=== PATIENT | female | born 1995 | race Hispanic/Latino ===

== ENCOUNTER 2018-07-28 05:03 | Day surgery (SDC) ==
[2018-07-28 05:56] VITALS: BP 126/82; TEMP 98.2; BMI 26.9
--- NOTE | 2018-07-28 06:45 | PDOC.FPROB ---
FMR OB H&P: HPI - History of Present Illness Chief Complaint: contractions Indentification: G1 History of Present Illness: 23yo G1 at 39.6w EGA by LMP/1TUS presents for increased pain and frequency of contractions since 11pm last night. Pt reports good mvmt, contractions every 5 min that are painful, some vaginal discharge for the last 2 months, denies vaginal bleeding or big gush of fluid. No concerns or complaints at this time. She does not want an epidural. Primary Care Physician: Luci JOHNSON FMR OB H&P: Current - Care : 1 Gestational age: 39.6 Due date: 07/29/2018 Dating Criteria: LMP c/w 1TUS - OB Labs Blood type: O RH: positive Antibody Screen: negative HIV: negative RPR: negative HepBsAg: negative Rubella: immune Quad screen: negative Gonorrhea: negative Chlamydia: negative 1 hour gtt: 88 GBS: unknown FMR OB H&P: History - Past Medical History PMH: none - OB History OB History: G1 - Surgical History Sx History: none - Social History Social History: denies tobacco/etoh/drugs - Family History Family History: non contributory FMR OB H&P: Medications - Current Home Medications: Medication Instructions Recorded Confirmed Type No Known 07/28/18 07/28/18 History Allergies/Adverse Reactions: Allergies Allergy/AdvReac Type Severity Reaction Status Date / Time No Known Allergies Allergy Unverified 07/28/18 05:57 FMR OB H&P: ROS - Review of Systems General: denies: fever/chills, fatigue ENT: denies: nasal congestion Cardiovascular: denies: chest pain, palpitation Respiratory: denies: congestion, shortness of breath Gastrointestinal: reports: cramping. denies: abdominal pain Genitourinary (Female): reports: vaginal discharge. denies: vaginal bleeding Musculoskeletal: denies: pain, stiffness Neurologic: denies: syncope, seizures Integumentary: denies: rash, lesions Endocrine: denies: polydipsia, polyuria Psychological: denies: depression, anxiety FMR OB H&P: Vital Signs - Maternal Vital signs: Vital Signs - First Documented Temp Pulse Resp BP 98.2 F 62 16 126/82 07/28/18 05:47 07/28/18 05:47 07/28/18 05:47 07/28/18 05:47 - Heart Tones Baseline: 140 Variability: moderate Acceleration: present Deceleration: absent Category: category 1 FMR OB H&P: Physical Exam - Physical Exam General: awake, alert and oriented HEENT: normocephalic and atraumatic, EOMI, grossly normal vision, grossly normal hearing Neck: supple, trachea midline Chest: non-tender to palpation Heart: RRR, normal S1/S2 General: CTAB, no respiratory distress Abdomen: gravid, non-tender Musculoskeletal: pulses present Neurological: sensation to pain,touch and proprioception grossly normal, no focal deficit Skin: no rash, good tugor Lymphatic: no purpura, no petechia Psychiatric: good judgement and insight, normal mood and affect - Pelvic Exam Deviation from normal: non-malodorous discharge SVE: /-3 FMR OB H&P: A/P - Problem List (1) Current Visit: Yes Status: Acute (2) Normal labor Current Visit: Yes Status: Acute Code(s): O80 - ENCOUNTER FOR FULL-TERM UNCOMPLICATED DELIVERY; Z37.9 - OUTCOME OF DELIVERY, UNSPECIFIED Discussion: 23yo G1 at 39.6w EGA by LMP/1TUS presents for increased contractions Labor in a term 23yo G1 A- Pt sav q5min by hx and shown on monitor, reports contractions to be painful. FHT category 1. VSS and wnl. P- Will obs in L&D and recheck @ 0830 to monitor for progression of cervical dilation -PO hydration -will get VP3 for eval of vaginal discharge -will consider amnisure -will request records for GBS status
[2018-07-28 07:42] LABS: Amnisure Test No Membranes Rupture (No Rupture)
[2018-07-28 07:43] LABS: Amnisure Internal Control QC ACCEPTABLE (ACCEPTABLE)
--- NOTE | 2018-07-28 08:46 | PDOC.LDPN ---
Labor & Delivery Progress Note - Subjective Subjective: comfortable - Objective Vital signs reviewed and normal: yes General: NAD, resting Uterine fundus: non tender SVE: at 10:30 Dilation: 1 Effacement: 0% Station: -3 FHT: category 2 ( tachycardia 160's), variability present [place] contractions every: q3 min - Assessment (1) Term Code(s): Z34.80 - ENCOUNTER FOR SUPRVSN OF NORMAL , UNSP TRIMESTER Current Visit: Yes Status: Acute Comment: 23 year old at 39.6 wks presents with contractions - No known complications in this - Latent labor - Recheck cervix 4 hours later: 1/thick/high - Contractions q3 min; patient does not appear to be in pain, although she rates it 8/10 (2) Vaginal discharge Code(s): N89.8 - OTHER SPECIFIED NONINFLAMMATORY DISORDERS OF VAGINA Current Visit: Yes Status: Acute Comment: - Reportedly leaking fluid since yesterday - Amnisure negative - Sterile speculum exam negative for pooling of fluid, negative valsalva - VP3 pending (3) tachycardia Code(s): TFD9013 - Current Visit: Yes Status: Acute Comment: - Encouraged PO fluid intake - Appears intermittent to 170's and back down to 150's with moderate variability -: Dispo: Patient stable. In latent labor. Explained that patient could be in latent labor for some time. tachycardia appears to have resolved. Return precautions provided. Plan to d/c patient home. Post-dates induction scheduled for 08/05.
== END 2018-07-28 11:45 | disposition home or self-care (01) ==
LOC: L&D/OP 05:03
PROVIDERS: ATTEND Emergency Medicine
DX: O47.1 False labor at or after 37 completed weeks of gestation (principal); O99.89 Other specified diseases and conditions complicating pregnancy, childbirth and the puerperium; N89.9 Noninflammatory disorder of vagina, unspecified; O76 Abnormality in fetal heart rate and rhythm complicating labor and delivery; Z3A.39 39 weeks gestation of pregnancy
CPT/HCPCS: 84112; 87480; 87510; 87660; 99285

== ENCOUNTER 2018-08-05 22:52 | Inpatient (IN) | payer MEDICAID, OTHER, SELFPAY ==
[2018-08-05] MEDS: Lactated Ringer's 1,000 ML IV SCH (23:36)
[2018-08-05 23:46] VITALS: BMI 26.9
[2018-08-05 23:49] LABS: Hemoglobin 11.6 g/dL (12.0-16.0); Mean Corpuscular HGB CONC 33.3 g/dL (32.0-36.0); Mean Corpuscular Hemoglobin 27.9 pg (27.0-31.0); Mean Corpuscular Volume 83.8 fL (78.0-98.0); Mean Platelet Volume 7.7 fL (7.4-10.4); Platelet Count 257 thou/uL (130-400); RBC Distribution Width 13.2 % (11.5-14.5); Red Blood Cell (RBC) Count 4.16 mill/uL (4.20-5.40); White Blood Cell (WBC) Count 8.7 thou/uL (4.8-10.8)
--- NOTE | 2018-08-06 00:02 | PDOC.FPROB ---
FMR OB H&P: HPI - History of Present Illness Chief Complaint: IOL History of Present Illness: Ms Joyner is a 23yo @41.1wks by LMP c/w 9.3wk US EDC 07/29/18 presenting for IOL for late term induction. Endorses movement. Denies contractions, LOF, vaginal bleeding, change in discharge. Denies HEBERT, Abdominal pain, changes in vision or edema. Primary Care Physician: Cortez FMR OB H&P: Current - Care : 1 Para: 0 Gestational age: 41.1 Due date: 07/29/18 Dating Criteria: LMP c/w 9.3wk US Total weight gain: 11lbs Course/Complications: Anemia of - OB Labs Blood type: O RH: positive Antibody Screen: negative HIV: negative RPR: negative HepBsAg: negative Rubella: immune Quad screen: negative Gonorrhea: negative Chlamydia: negative 1 hour gtt: 88 GBS: negative H&H: 10.2 - Anatomy Survey Anatomy survey: NML FMR OB H&P: Medications - Current Home Medications: Medication Instructions Recorded Confirmed Type Vit 108/Iron/Folic AC 1 tablet PO DAILY 08/05/18 08/05/18 History [ One Tablet] Allergies/Adverse Reactions: Allergies Allergy/AdvReac Type Severity Reaction Status Date / Time No Known Allergies Allergy Verified 08/05/18 23:20 FMR OB H&P: ROS - Review of Systems General: denies: fever/chills, weight/appetite/sleep changes, fatigue Eyes: denies: vision changes, scotomas, floaters ENT: denies: nasal congestion, rhinorrhea, sore throat Cardiovascular: denies: chest pain, palpitation, edema Respiratory: denies: cough, congestion, shortness of breath Gastrointestinal: denies: abdominal pain, nausea, vomiting Genitourinary (Female): denies: vaginal discharge, vaginal pain, vaginal bleeding, contractions Musculoskeletal: denies: pain, swelling Neurologic: denies: numbness, headache Integumentary: denies: rash, lesions FMR OB H&P: Vital Signs - Maternal Vital signs: Vital Signs - First Documented Temp Pulse Resp BP 99.0 F 72 18 131/83 08/05/18 23:14 08/05/18 23:14 08/05/18 23:14 08/05/18 23:14 FMR OB H&P: Physical Exam - Physical Exam General: NAD, awake, alert and oriented HEENT: normocephalic and atraumatic, conjunctiva clear, no scleral icterus, grossly normal hearing, oropharynx clear Neck: supple, trachea midline Heart: RRR, no murmurs/rubs/gallops General: CTAB, no respiratory distress, good air movement, no wheezing Abdomen: soft, gravid, non-tender, bowel sound present Musculoskeletal: FROM in all four extremities, no misalignment/asymmetry, no atrophy Neurological: no focal deficit Skin: no rash, capillary refill <2 seconds, no jaundice Psychiatric: intact recent and remote memory, good judgement and insight, normal mood and affect - Pelvic Exam Membranes: Intact Presentation: cephalic by US Estimated Weight: 7 lbs FMR OB H&P: Results - Labs Lab results: Laboratory Results - last 24 hr 08/05/18 23:31 WBC 8.7 RBC 4.16 L Hgb 11.6 L Hct 34.8 L MCV 83.8 MCH 27.9 MCHC 33.3 RDW 13.2 Plt Count 257 MPV 7.7 FMR OB H&P: A/P - Problem List (1) LATE TERM Current Visit: Yes Status: Acute Disposition: Ms Joyner is a 23yo @41.1wks by 9.3wk US [facility] 07/29/18 presenting for IOL for late term induction. sIUP - Possible tachycardia, will continue to monitor after 500ml bolus - SVE on 08/01/18 in clinic 3 - Plan IOL with cytotec - Does not desire epidural Anemia of - Hgb 11.6 - Plans to breast/bottle feed - Contraception: Undecided Discussion: Date/Time: 08/06/18 0000 This H&P was discussed with Dr. Aquino and Dr. Chao who agree with the above documentation and plan. Addendum - Attending - Attending Attestation Date/Time: 08/07/18 0708 I personally evaluated the patient and discussed the management with Dr. Mcnally I agree with the History, Examination, Assessment and Plan documented above with any addition or exceptions noted below. 23yo @41.1wks by LMP c/w 9.3wk presenting for postdates IOL. Uncomplicated CVX: 1cm/T/H Cephalic presentation FHT cat II for intermittent tachycardia. GBS negative Balloon placed for cervical ripening. Once FHT is reassuring, can give cytotec
[2018-08-06] MEDS ORDERED: NS / Oxytocin 40 units/1000ml 1,000 ML IV PRN (00:50)
[2018-08-06] MEDS ORDERED: Ondansetron PF 4 MG/2 ML Vial IVP PRN (00:50)
[2018-08-06] MEDS ORDERED: Promethazine HCl 25 MG/ML VIAL IM PRN (00:50)
[2018-08-06] MEDS ORDERED: Lidocaine 1% (PF) 30 ML VIAL SC PRN (00:50)
[2018-08-06] MEDS ORDERED: Misoprostol 100 MCG TAB ONE (00:53)
--- NOTE | 2018-08-06 02:19 | PDOC.LDPN ---
Labor & Delivery Progress Note - Subjective Subjective: comfortable - Objective Vital signs reviewed and normal: yes General: NAD Uterine fundus: non tender Dilation: 1 Effacement: 50% Station: -3 FHT: category 2 (Intermittent tachycardia ) - Assessment (1) LATE TERM Current Visit: Yes Status: Acute Plan: continue plan of care, labor augmentation -: Ms Joyner is a 23yo @41.1wks by 9.3wk US EDC 07/29/18 presenting for IOL for late term induction. sIUP - Intermittent tachycardia will hold off on induction with cytotec, cooks balloon placed with 60mls - SVE /-3 - Does not desire epidural Anemia of - Hgb 11.6 - Plans to breast/bottle feed - Contraception: Undecided
[2018-08-06] MEDS: Lactated Ringer's 1,000 ML IV SCH ×3 (03:30→20:37)
[2018-08-06 03:36] LABS: Syphilis Antibody Nonreactive (Nonreactive); Syphilis Antibody Index 0.05 S/CO (<1.00 Non-Reactive)
[2018-08-06] MEDS: Misoprostol 100 MCG TAB VAG SCH ×3 (03:37→19:23)
--- NOTE | 2018-08-06 04:53 | PDOC.LDPN ---
Labor & Delivery Progress Note - Subjective Subjective: comfortable - Objective Vital signs reviewed and normal: yes General: NAD FHT: category 2 - Assessment (1) LATE TERM Current Visit: Yes Status: Acute
[2018-08-06] MEDS ORDERED: Butorphanol Tartrate 1 MG/ML VIAL SLOW IVP PRN (08:36)
[2018-08-06] MEDS ORDERED: Butorphanol Tartrate 1 MG/ML VIAL ONE (08:56)
[2018-08-06] MEDS: Misoprostol 100 MCG TAB PO SCH ×2 (09:17→19:24)
--- NOTE | 2018-08-06 13:07 | PDOC.LDPN ---
Labor & Delivery Progress Note - Subjective Subjective: comfortable - Objective Vital signs reviewed and normal: yes General: NAD, resting, breathing through contractions Uterine fundus: non tender Dilation: balloon in place; 2 Station: -2 FHT: category 1, variability present [place] contractions every: 3-4 min Resuscitative measures: maternal IV fluids Plan: continue plan of care -: Ms Joyner is a 23yo @41.1wks by 9.3wk US EDC 07/29/18 presenting for IOL for late term induction. sIUP - Cooks balloon in place with 60mls; balloon placed at 0210; Will remove at 12 hrs - s/p oral cytotech @ 0830 - Does not desire epidural; given information and had discussion - Continue current management, can consider pitocin once balloon removed - Pt given stadal for pain Anemia of - Hgb 11.6, asymptomatic, will continue w/ iron supplement - Plans to breast/bottle feed - Contraception: Undecided
--- NOTE | 2018-08-06 14:22 | PDOC.LDPN ---
Labor & Delivery Progress Note - Subjective Subjective: comfortable - Objective Vital signs reviewed and normal: yes General: NAD, resting, breathing through contractions Dilation: 3 Effacement: 50% Station: -2 FHT: category 1, variability present [place] contractions every: 5min Resuscitative measures: maternal IV fluids Plan: continue plan of care, pitocin for augmentation -: Ms Joyner is a 23yo @41.1wks by 9.3wk US EDC 07/29/18 presenting for IOL for late term induction. sIUP - Cooks balloon removed - required deflation to remove - s/p oral cytotech @ 0830 - Does not desire epidural; given information and had discussion - Pt given stadal for pain - Will start pitocin and titrate as necessary Anemia of - Hgb 11.6, asymptomatic, will continue w/ iron supplement - Plans to breast/bottle feed - Contraception: Undecided
[2018-08-06] MEDS: NS w/ Oxytocin 10 units 500 ML IV SCH (14:54)
[2018-08-06 15:11] LABS: HBSAg Index 0.56 S/CO (0-0.99); Hep B Surf Ag Non-Reactive S/CO (NonReactive)
--- NOTE | 2018-08-06 17:10 | PDOC.LDPN ---
Labor & Delivery Progress Note - Subjective Subjective: comfortable - Objective Vital signs reviewed and normal: yes General: NAD, resting, breathing through contractions Uterine fundus: non tender Dilation: 3 Effacement: 50% Station: -2 FHT: category 1 (FHR 140, accel present, no decels, intermittent minimal variability w/ recovery), variability present [place] contractions every: 3-5min Resuscitative measures: maternal IV fluids Plan: continue plan of care, pitocin for augmentation -: Ms Joyner is a 23yo @41.1wks by 9.3wk US EDC 07/29/18 presenting for IOL for late term induction. sIUP - Cooks balloon removed - required deflation to remove - s/p oral cytotech @ 0830 - Does not desire epidural; given information and had discussion - Pt given stadal for pain - On 6 of pit currently, will titrate as tolerated - Check at 1700: 3/50/-2, will recheck in 2 hours Anemia of - Hgb 11.6, asymptomatic, will continue w/ iron supplement - Plans to breast/bottle feed - Contraception: Undecided
--- NOTE | 2018-08-06 19:31 | PDOC.LDPN ---
Labor & Delivery Progress Note - Subjective Subjective: comfortable - Objective Vital signs reviewed and normal: yes General: NAD, breathing through contractions Uterine fundus: non tender Effacement: 50% Station: -3 FHT: category 1, variability present [place] contractions every: 2-5minutes - Assessment (1) LATE TERM Current Visit: Yes Status: Acute (2) tachycardia Code(s): [id number] - Current Visit: No Status: Acute Comment: - Encouraged PO fluid intake - Appears intermittent to 170's and back down to 150's with moderate variability (3) Normal labor Code(s): O80 - ENCOUNTER FOR FULL-TERM UNCOMPLICATED DELIVERY; Z37.9 - OUTCOME OF DELIVERY, UNSPECIFIED Current Visit: No Status: Acute (4) Current Visit: No Status: Acute (5) Term Code(s): Z34.80 - ENCOUNTER FOR SUPRVSN OF NORMAL , UNSP TRIMESTER Current Visit: No Status: Acute Comment: 23 year old at 39.6 wks presents with contractions - No known complications in this - Latent labor - Recheck cervix 4 hours later: 1/thick/high - Contractions q3 min; patient does not appear to be in pain, although she rates it 8/10 Plan: continue plan of care, pitocin for augmentation -: Ms Joyner is a 23yo @41.1wks by 9.3wk US EDC 07/29/18 presenting for IOL for late term induction. sIUP - Cooks balloon removed - required deflation to remove - s/p oral cytotech @ 0830 - Does not desire epidural; given information and had discussion - Pt given stadol for pain - On 10 of pit currently, will titrate as tolerated - Check at 1700: 3/50/-2 - @ 1900: 4/50/-3, will recheck in 2 hrs Anemia of - Hgb 11.6, asymptomatic, will continue w/ iron supplement - Plans to breast/bottle feed - Contraception: Undecided
--- NOTE | 2018-08-06 23:52 | PDOC.LDPN ---
Labor & Delivery Progress Note - Subjective Subjective: comfortable, other (rating contractions 2/10) - Objective Vital signs reviewed and normal: yes Abnormal vital signs: 2 systolic BP >140, appear to be pain related, during contractions General: resting, breathing through contractions Dilation: 5 Effacement: 75% Station: -3 FHT: category 1 [place] contractions every: 2-3 minutes AROM: clear fluid IUPC placed: yes - Assessment (1) LATE TERM Current Visit: Yes Status: Acute (2) tachycardia Code(s): [id number] - Current Visit: No Status: Acute Comment: - Encouraged PO fluid intake - Appears intermittent to 170's and back down to 150's with moderate variability (3) Normal labor Code(s): O80 - ENCOUNTER FOR FULL-TERM UNCOMPLICATED DELIVERY; Z37.9 - OUTCOME OF DELIVERY, UNSPECIFIED Current Visit: No Status: Acute (4) Current Visit: No Status: Acute (5) Term Code(s): Z34.80 - ENCOUNTER FOR SUPRVSN OF NORMAL , UNSP TRIMESTER Current Visit: No Status: Acute Comment: 23 year old at 39.6 wks presents with contractions - No known complications in this - Latent labor - Recheck cervix 4 hours later: 1/thick/high - Contractions q3 min; patient does not appear to be in pain, although she rates it 8/10 Plan: continue plan of care, pitocin for augmentation -: Ms Joyner is a 23yo @41.1wks by 9.3wk US EDC 07/29/18 presenting for IOL for late term induction. sIUP - Cooks balloon removed - required deflation to remove - s/p oral cytotech @ 0830 - Does not desire epidural; given information and had discussion - stadol for pain - On 10 of pit currently, will titrate as tolerated - Check at 1700: 3/50/-2 - @ 1900: 4/50/-3, will recheck in 2 hrs - @ 2100: 5/50/-2 - @ 2330: 5.5/75/-3, AROM, IUPC placed - FHTs category 1: baseline 150, mod variability, accels present, no decels Anemia of - Hgb 11.6, asymptomatic, will continue w/ iron supplement - Plans to breast/bottle feed - Contraception: Undecided
[2018-08-07] MEDS ORDERED: Lidocaine 1.5% w/Epi 1:200K 30 ML VIAL (Epid Use) ONE (01:21)
[2018-08-07] MEDS ORDERED: Fentanyl 4 mcg/Bup 0.1% Cadd 100 ML ONE (01:22)
[2018-08-07] MEDS ORDERED: Ondansetron PF 4 MG/2 ML Vial IVP PRN (02:02)
[2018-08-07] MEDS ORDERED: Hydrocerin (Eucerin) Cream 120 gm Jar TOP PRN (02:02)
[2018-08-07] MEDS ORDERED: Lactated Ringer's 500 ML IV PRN (02:02)
[2018-08-07] MEDS ORDERED: ePHEDrine/0.9% NaCl/PF SYRINGE 50 mg/10 ml SLOW IVP PRN (02:02)
[2018-08-07] MEDS ORDERED: Acetaminophen 325 MG TAB PO PRN (02:02)
[2018-08-07] MEDS ORDERED: Naloxone HCl 0.4 mg/ml Vial IVP PRN ×2 (02:02)
[2018-08-07] MEDS ORDERED: Promethazine HCl 25 MG/ML VIAL IM PRN (02:02)
[2018-08-07] MEDS: Lactated Ringer's 1,000 ML IV SCH ×2 (02:02→10:05)
[2018-08-07] MEDS ORDERED: diphenhydrAMINE 50 MG/ML VIAL IVP PRN (02:02)
[2018-08-07] MEDS ORDERED: Fentanyl 4 mcg/Bupivacaine 0.1% Cassette 100 ML EPIDURAL SCH (02:15)
[2018-08-07] MEDS ORDERED: Communication Order-Pharmacy FS SCH (02:15)
--- NOTE | 2018-08-07 03:52 | PDOC.LDPN ---
Labor & Delivery Progress Note - Subjective Subjective: comfortable, other (received epidural) - Objective Vital signs reviewed and normal: yes General: NAD, resting Dilation: 5.5 Station: -2 FHT: category 1 [place] contractions every: 2-3 min AROM: clear fluid IUPC placed: yes - Assessment (1) LATE TERM Current Visit: Yes Status: Acute (2) tachycardia Code(s): [id number] - Current Visit: No Status: Acute Comment: - Encouraged PO fluid intake - Appears intermittent to 170's and back down to 150's with moderate variability (3) Normal labor Code(s): O80 - ENCOUNTER FOR FULL-TERM UNCOMPLICATED DELIVERY; Z37.9 - OUTCOME OF DELIVERY, UNSPECIFIED Current Visit: No Status: Acute (4) Current Visit: No Status: Acute (5) Term Code(s): Z34.80 - ENCOUNTER FOR SUPRVSN OF NORMAL , UNSP TRIMESTER Current Visit: No Status: Acute Comment: 23 year old at 39.6 wks presents with contractions - No known complications in this - Latent labor - Recheck cervix 4 hours later: 1/thick/high - Contractions q3 min; patient does not appear to be in pain, although she rates it 8/10 Plan: continue plan of care, labor augmentation, pitocin for augmentation -: Ms Joyner is a 23yo @41.1wks by 9.3wk US EDC 07/29/18 presenting for IOL for late term induction. sIUP - Cooks balloon removed - required deflation to remove - s/p oral cytotech @ 0830 - stadol for pain - On pit, will titrate as tolerated - @ 1700: 3/50/-2 - @ 1900: 4/50/-3, will recheck in 2 hrs - @ 2100: 5/50/-2 - @ 2330: 5.5/75/-3, AROM, IUPC placed - @ 0345: 5.5/80/-2, MVUs not adequate at 160; pitocin increased - epidural in place - FHTs category 1: baseline 150, mod variability, accels present, no decels, cxn every 2-3 minutes Anemia of - Hgb 11.6, asymptomatic, will continue w/ iron supplement - Plans to breast/bottle feed - Contraception: Undecided Addendum - Attending - Attending Attestation Date/Time: 08/07/18 0728 I personally evaluated the patient and discussed the management with Dr. Al I agree with the History, Examination, Assessment and Plan documented above with any addition or exceptions noted below. Pt checked at 7am. Cervix 5.5/90/- On pit of 10 without adequate MVUs. RNs having difficulty getting MVUs adequate as pt has tachysystole with higher doses. Cat II FHT for tachcardia and occasional variable decel. Using spanish interpreter discussed possibility of delivery as she hasn't dilated in 9hrs at this point. Will recheck in 2 hrs. If making progress will continue attempt at vaginal delivery but if not will proceed with .
--- NOTE | 2018-08-07 09:24 | PDOC.EVN ---
Event Note - Event Note Event Note: Pt evaluated. Cervix now 6/-1, starting to get mildly edematous. IUPC changed and MVUs now 170-180. FHTs: 140s with periods of tachycardia to 170s (likely prolonged accel), periods of minimal variability/moderate variability/accels present/early/ variable decels. Will continue to titrate pitocin to adequate MVUs. Recheck in 4 hrs. Cat II tracing but overall reassuring
[2018-08-07] MEDS: NS w/ Oxytocin 10 units 500 ML IV SCH (09:37)
[2018-08-07] MEDS: NS / Oxytocin 40 units/1000ml 1,000 ML IV SCH ×2 (15:00→20:49)
[2018-08-07] MEDS ORDERED: Bisacodyl 10 MG SUPP PR PRN (16:10)
[2018-08-07] MEDS ORDERED: Milk Of Magnesia 30 ML UDCUP PO PRN (16:10)
[2018-08-07] MEDS ORDERED: Albuterol Sulfate 2.5 mg/3 ml Neb ONE (19:00)
[2018-08-07] MEDS: Ferrous Sulfate 325 MG TAB PO SCH (19:00)
[2018-08-07] MEDS: Ibuprofen 800 MG TAB PO SCH (20:49)
[2018-08-07] MEDS: Docusate Calcium (SURFAK) 240 MG CAP PO SCH (20:49)
[2018-08-08] MEDS: Ibuprofen 800 MG TAB PO SCH ×3 (06:09→22:07)
[2018-08-08 06:53] LABS: Hemoglobin 9.5 g/dL (12.0-16.0); Mean Corpuscular HGB CONC 33.9 g/dL (32.0-36.0); Mean Corpuscular Hemoglobin 29.4 pg (27.0-31.0); Mean Corpuscular Volume 86.9 fL (78.0-98.0); Mean Platelet Volume 8.1 fL (7.4-10.4); Platelet Count 173 thou/uL (130-400); RBC Distribution Width 13.5 % (11.5-14.5); Red Blood Cell (RBC) Count 3.21 mill/uL (4.20-5.40); White Blood Cell (WBC) Count 13.6 thou/uL (4.8-10.8)
[2018-08-08] MEDS ORDERED: Adacel (T-DAP) 0.5 ML SYRINGE IM ONE (09:00)
--- NOTE | 2018-08-08 09:10 | PDOC.PP ---
Post Progress Note Post Day #: 1 Subjective: This morning patient states she is feeling well. She states she is eating well. States she is still swollen around the vaginal but is otherwise feeling well. less bleeding than a period. PO intake tolerated: yes Flatus: no Ambulation: yes Vital Signs (12 hours) Temp Pulse Resp BP Pulse Ox 08/08/18 08:08 97.9 F 68 20 102/67 98 08/08/18 00:00 98.1 F 69 18 101/56 L Weight Weight 54.431 kg - Physical Examination General: NAD Cardiovascular: no m/r/g, RRR Respiratory: clear to auscultation bilaterally, non-labored breathing Abdominal: + bowel sounds, appropriately TTP Fundus firm & at: 2cm below umbilicus Extremities: negative homans (B) Neurological: no gross focal deficits Psychiatric: A&Ox3, normal affect Result Diagrams: 08/08/18 05:33 Additional Labs: Post Labs Blood Type O POSITIVE 08/05/18 23:31 Hep Bs Antigen Non-Reactive S/CO (NonReactive) 08/05/18 23:31 Rubella IgG Antibody 2.35 index (Immune >0.99) 08/05/18 23:31 (1) Status: Acute - Assessment/Plan #PP day 1 - hgb 11.5-> 9.6 - asymptomatic - eating well - encouraged ambulation today - spoke to nurse asked patient walk up and down the [place] today # partial third degree tear - docuaste BID - must have BM before dc Code: full Diet: regular Fluids: tko Dispo: 1 day Addendum - Attending - Attending Attestation Date/Time: 08/08/18930 I personally evaluated the patient and discussed the management with Dr. Al I agree with the History, Examination, Assessment and Plan documented above with any addition or exceptions noted below. 23yo [id number] PPD #1 s/p complicated by partial 3rd degree perineal laceration. Labia are significantly edematous. Will keep blevins in place at this time. Doing well otherwise Anticipate d/c to home on PPD # 2 or 3
[2018-08-08] MEDS: Docusate Calcium (SURFAK) 240 MG CAP PO SCH ×2 (09:17→22:07)
[2018-08-08] MEDS: Ferrous Sulfate 325 MG TAB PO SCH ×2 (09:17→18:11)
--- NOTE | 2018-08-08 10:42 | OP ---
DATE OF PROCEDURE: 08/07/2018 DELIVERING PHYSICIAN: Anup Al MD ATTENDING PHYSICIAN: Bel Vasquez MD PROCEDURE: Spontaneous vaginal delivery. ANESTHESIA: Epidural. ESTIMATED BLOOD LOSS: 200 mL. PREOPERATIVE DIAGNOSES: 1. Term intrauterine in labor. 2. Induction for postdates. 3. Anemia of . POSTOPERATIVE DIAGNOSES: 1. Term intrauterine in labor. 2. Induction for postdates. 3. Anemia of . INDICATIONS: A 23-year-old G1, P0 female, presented for induction secondary to postdates. DELIVERY NOTE: This is a 23-year-old, G1, P1-0-0-1 at 40 and 1 weeks, delivered a viable female at 1458 hours on 08/07/2018. Following an uneventful antepartum course, a vigorous female was delivered over an intact perineum in the right occipital anterior position. Anterior shoulder and then the remainder of the body delivered. No nuchal cord. The head was held down. Mouth and nares were bulb suctioned. Cord was clamped and cut, and blood collected. The patient was taken to the warmer quickly. Cord segment was taken for sample. Placenta was delivered intact with a 3-vessel cord. Fundal massage was performed and the fundus was firm. The cervix and vagina were inspected and found to have a partial third-degree tear. The capsule was not affected. The external anal sphincter was reinforced with one [id number] knots of 3-0 Vicryl. After this, good approximation was noted of the external anal sphincter and we were left with essentially a second-degree tear. This was repaired in the usual fashion using a 3-0 Vicryl suture in a running locking fashion. After this, good approximation and hemostasis was noted. The was sent to the nursery in good condition for routine care. Apgars were 5 and 7 at one and five minutes respectively. The infant initially required blow-by, but then recovered well and transitioned well. The patient tolerated the delivery well and went to after routine recovery care. AugustoBL: 245. Job ID: [id number]
[2018-08-08] MEDS: NS w/ Oxytocin 10 units 500 ML IV SCH (15:24)
--- NOTE | 2018-08-08 15:49 | PDOC.EVN ---
Event Note - Event Note Event Note: 08/07/2018 I was present, assisted, and supervised the of a viable female over an intact perineum to a 23 yo @ 41+ weeks. Apgars 5/7. Placenta delivered spontaneously and intact. 3 V cord. Partial 3rd laceration repaired in usual fashion with 3-0 vicryl. QBL= 245mL. Longo replaced due to labial swelling. Infant and mother in stable condition.
[2018-08-09] MEDS: Ibuprofen 800 MG TAB PO SCH ×2 (06:20→14:54)
--- NOTE | 2018-08-09 07:50 | PDOC.PP ---
Post Progress Note Post Day #: 2 Subjective: This morning patient states she is feeling well. She is eating well, ambulating without difficulty. She has had a BM without bleeding or pain. She staets she has had less bleeding than a regular period. PO intake tolerated: yes Flatus: yes Ambulation: yes Weight Weight 54.431 kg - Physical Examination General: NAD Cardiovascular: no m/r/g Respiratory: clear to auscultation bilaterally, non-labored breathing Abdominal: + bowel sounds, lochia, appropriately TTP Extremities: negative homans (B) Neurological: no gross focal deficits Psychiatric: A&Ox3, normal affect Result Diagrams: 08/08/18 05:33 Additional Labs: Post Labs Blood Type O POSITIVE 08/05/18 23:31 Hep Bs Antigen Non-Reactive S/CO (NonReactive) 08/05/18 23:31 Rubella IgG Antibody 2.35 index (Immune >0.99) 08/05/18 23:31 (1) Status: Acute - Assessment/Plan #PP day 2 - hgb 11.5-> 9.6 - asymptomatic - eating well - ambulating well # partial third degree tear - docusate BID for 1 week - had BM without difficulty - skilled nursing facility counselor on risk of tear on repeat vaginal delivery Code: full Diet: regular Fluids: tko Dispo: plan for d/c today Addendum - Attending - Attending Attestation Date/Time: 08/09/18 1406 I personally evaluated the patient and discussed the management with Dr. Al I agree with the History, Examination, Assessment and Plan documented above with any addition or exceptions noted below. PPD # 2 s/p meeting appropriate milestones including bowel movement D/C to home today
[2018-08-09 08:08] VITALS: BP 115/61; TEMP 98.2
[2018-08-09] MEDS: Ferrous Sulfate 325 MG TAB PO SCH (09:10)
[2018-08-09] MEDS: Docusate Calcium (SURFAK) 240 MG CAP PO SCH (09:10)
[2018-08-09] MEDS: NS w/ Oxytocin 10 units 500 ML IV SCH (14:54)
== END 2018-08-09 18:24 | disposition home or self-care (01) | DRG 768 ==
LOC: L&D 22:52 → 3SE 08-07 18:27
PROVIDERS: ADMIT Emergency Medicine; ATTEND Emergency Medicine
PROC: 10E0XZZ Delivery of Products of Conception, External Approach (ICD-10-PCS; principal; 2018-08-05)
PROC: 0DQR0ZZ Repair Anal Sphincter, Open Approach (ICD-10-PCS; 2018-08-05)
PROC: 3E033VJ Introduction of Other Hormone into Peripheral Vein, Percutaneous Approach (ICD-10-PCS; 2018-08-05)
DX: O48.0 Post-term pregnancy (principal); Z37.0 Single live birth; O70.20 Third degree perineal laceration during delivery, unspecified; Z3A.41 41 weeks gestation of pregnancy; O76 Abnormality in fetal heart rate and rhythm complicating labor and delivery; O99.02 Anemia complicating childbirth; D64.9 Anemia, unspecified
CPT/HCPCS: 36415; 51702; 76815; 85027; 86762; 86780; 86850; 86900; 86901; 87340; C1726; J0595; J7611

== ENCOUNTER 2018-12-06 13:48 | Observation (INO) | payer MEDICAID, SELFPAY ==
[~2018-12-06 13:48] MED LIST: Dexamethasone 20 MG/5 ML VIAL ONE; Glycopyrrolate 0.2 MG/ML 5 ML SYRINGE ONE; Ketorolac Tromethamine 30 MG/ML VIAL ONE; Lidocaine 1% PF 5 ML VIAL ONE; Ondansetron PF 4 MG/2 ML Vial ONE; PROPOFOL 200 MG/20 ML VIAL ONE; Rocuronium Bromide 10 MG/ML (10ML VIAL) ONE; diphenhydrAMINE 50 MG/ML VIAL ONE
[2018-12-06] MEDS ORDERED: Ondansetron PF 4 MG/2 ML Vial ONE (14:12)
[2018-12-06] MEDS ORDERED: Morphine 4 MG/ML VIAL ONE (14:12)
[2018-12-06 14:22] LABS: #Eosinphils 0.1 thou/uL (0.0-0.7); #Lymphocytes 2.5 thou/uL (1.20-3.40); #Monocytes 0.5 thou/uL (0.11-0.59); #Neutrophils 5.6 thou/uL (1.40-6.50); %Basophils 0.3 % (0.0-1.0); %Eosinophils 1.6 % (0.0-10.0); %Monocytes 5.1 % (0.0-10.0); %Neutrophils 63.9 % (42.0-75.0); Hemoglobin 11.3 g/dL (12.0-16.0); Mean Corpuscular HGB CONC 33.6 g/dL (32.0-36.0); Mean Corpuscular Hemoglobin 27.7 pg (27.0-31.0); Mean Corpuscular Volume 82.4 fL (78.0-98.0); Mean Platelet Volume 7.2 fL (7.4-10.4); Platelet Count 232 thou/uL (130-400); RBC Distribution Width 12.9 % (11.5-14.5); Red Blood Cell (RBC) Count 4.07 mill/uL (4.20-5.40); White Blood Cell (WBC) Count 8.7 thou/uL (4.8-10.8)
[2018-12-06 14:27] LABS: Bilirubin Negative (Negative); Blood, Urine Trace (Negative); Clarity TURBID (Clear); Glucose, Urine (Dipstick) Negative (Negative); Leukocyte Small (Negative); Nitrite Negative (Negative); Protein, Urine (Dipstick) 30 mg/dL (Neg-Trace); Specific Gravity, Urine 1.024 (1.002-1.036); pH, Urine 5.5 (5.0-9.0)
[2018-12-06 14:32] LABS: BHCG - Serum Negative (NEGATIVE); Pregs Control Background? CLEAR/WHITE (CLR/WHITE); Pregs Control Bar Appear? YES (CONTROL BAR)
[2018-12-06 14:41] LABS: Bacteria/HPF 1+ HPF (None Seen); Hyaline Casts/LPF NONE SEEN LPF (0-3 Hyaline); RBC/HPF 0-3 HPF (0-3)
[2018-12-06 14:44] LABS: ALT (SGPT) 29 U/L (8-55); AST (SGOT) 56 U/L (5-34); Albumin 4.1 g/dL (3.5-5.0); Alkaline Phosphatase 153 U/L (40-150); Anion Gap 12 mmol/L (10-20); BUN (Urea Nitrogen) 11 mg/dL (7.0-18.7); Bilirubin, Total 0.8 mg/dL (0.2-1.2); Calc. Creatinine Clearance 0 mL/min (70-130); Calcium 8.9 mg/dL (7.8-10.44); Carbon Dioxide 25 mmol/L (22-29); Chloride 105 mmol/L (98-107); Estimated GFR-MDRD Greater than 90; Globulin 3.4 g/dL (2.4-3.5); Glucose 97 mg/dL (70-105); Lipase 23 U/L (8-78); Potassium 3.1 mmol/L (3.5-5.1); Protein, Total 7.5 g/dL (6.0-8.3); Sodium 139 mmol/L (136-145)
--- NOTE | 2018-12-06 14:52 | ULT ---
ULTRASOUND ABDOMEN LIMITED: (RIGHT UPPER QUADRANT) DATE: 12/06/2018 HISTORY: 23-year-old female with right upper quadrant abdominal pain FINDINGS: Gallbladder:What appears to be a single, very elongated gallstone, at least 45 x 24 mm causing strong acoustic shadowing that obscures much of the gallbladder. Mild gallbladder wall thickening 3 to 4 mm. No pericholecystic fluid. Common duct: 4 mm. Liver:Normal size and echogenicity. Pancreas:Nonspecific sonographic appearance of body. Head and tail obscured by shadowing from bowel g as. Right kidney:No hydronephrosis. IMPRESSION: 1. Positive for cholelithiasis consisting of what appears to be a long, large gallstone. 2. Mild mural thickening of the gallbladder.
[2018-12-06] MEDS ORDERED: Potassium Chloride 20 MEQ TAB ONE (14:54)
[2018-12-06] MEDS ORDERED: Piperacillin/Tazobactam 4.5 GM VIAL ONE (15:26)
[2018-12-06] MEDS ORDERED: Bupivacaine/Epinephrine 0.25% 30 ML VIAL ONE (15:37)
[2018-12-06] MEDS ORDERED: Iothalamate Meglumine 60% 50 ML VIAL FS ONE (15:42)
[2018-12-06] MEDS ORDERED: Fentanyl 100 MCG/2 ML VIAL ONE ×2 (16:59→19:09)
--- NOTE | 2018-12-06 18:22 | RAD ---
Intraoperative fluoroscopy, cholangiogram CLINICAL HISTORY: Abdominal pain. History of cholelithiasis FINDINGS: Intraoperative fluoroscopic imaging, 2 views, reveals a saccular appearance of the cystic d uct and portions of the common duct. No obvious focal filling defect of the contrast opacified biliary duct is seen. Definitive contrast within bowel is not confirmed. IMPRESSION: Intraoperative cholangiogram revealing saccular appearance of the cystic and portions of the common duct. No obvious focal filling defect. Contrast is not verified within bowel. Correlate with intraoperative findings.
[2018-12-06] MEDS ORDERED: SUGAMMADEX SODIUM 200 MG/2 ML VIAL ONE (18:26)
[2018-12-06] MEDS ORDERED: HYDROmorphone 2 MG/ML VIAL SLOW IVP PRN (18:51)
[2018-12-06] MEDS ORDERED: Ondansetron HCl/PF 4 MG/2 ML Vial IVP PRN (18:51)
[2018-12-06] MEDS ORDERED: PACU-Morphine 4MG/ML VIAL SLOW IVP PRN (18:51)
[2018-12-06] MEDS ORDERED: Promethazine HCl 25 MG/ML VIAL SLOW IVP PRN (18:51)
[2018-12-06] MEDS ORDERED: Promethazine HCl 25 MG/ML VIAL IM PRN ×2 (18:51→19:41)
[2018-12-06] MEDS ORDERED: Calcium Carbonate 500 MG ChewTAB PO PRN (19:41)
[2018-12-06] MEDS ORDERED: Ondansetron PF 4 MG/2 ML Vial IVP PRN (19:41)
[2018-12-06] MEDS ORDERED: hydrALAZINE 20 MG/ML VIAL SLOW IVP PRN (19:41)
[2018-12-06] MEDS ORDERED: Morphine 4 MG/ML VIAL SLOW IVP PRN ×2 (19:41)
[2018-12-06] MEDS ORDERED: Dextrose 50% Abboject 50 ML SYRINGE SLOW IVP PRN (19:41)
[2018-12-06] MEDS ORDERED: Mag-Al 1200 mg/1200 mg/30 ML UDCUP PO PRN (19:41)
[2018-12-06] MEDS ORDERED: HYDROcodone/Acetaminophen 7.5/325 mg Tablet PO PRN (19:41)
[2018-12-06] MEDS ORDERED: Dextrose 5% in Water 1,000 ML IV PRN (19:41)
[2018-12-06] MEDS: D5 1/2 NS w/20 mEq KCL 1,000 ML IV SCH (20:18)
[2018-12-06] MEDS: Famotidine/PF 20 mg/2ml Vial SLOW IVP SCH (20:18)
[2018-12-06] MEDS: Famotidine 20 MG TAB PO SCH (20:23)
--- NOTE | 2018-12-07 00:56 | HP ---
CHIEF COMPLAINT: Right upper quadrant pain. HISTORY OF PRESENT ILLNESS: This is a 23-year-old female who presents with epigastric, right upper quadrant pain. Never had these symptoms before. No prior known history of gallstones, jaundice or pancreatitis. Seen in the emergency department, ultrasound shows gallstones. She has elevation of her liver function tests. Pain is associated with nausea and vomiting. No history of other abdominal surgery. PAST MEDICAL HISTORY: Negative. PAST SURGICAL HISTORY: She delivered 4 months ago. ALLERGIES: NO KNOWN DRUG ALLERGIES. SOCIAL HISTORY: No smoking, alcohol, or drugs. REVIEW OF SYSTEMS: 10 system review of systems is otherwise negative except as described above. PHYSICAL EXAMINATION: HEENT: Sclerae anicteric. Oropharynx clear. NECK: No lymphadenopathy. CHEST: Clear. HEART: Regular rate and rhythm. ABDOMEN: Soft. Tender in the epigastric and right upper quadrant with localized guarding. No rebound. No abdominal or inguinal hernias. EXTREMITIES: No ischemic edema to extremities. LABORATORY DATA: There is elevation of the liver function tests, but total bilirubin is normal. ASSESSMENT: Acute cholecystitis with elevation of liver tests. PLAN: Laparoscopic cholecystectomy with intraoperative cholangiogram. Risks and benefits of surgery discussed via japanese interpreter including bleeding, infection, scarring, need for further surgery, need for revision, need for postoperative ERCP. She gives consent. We will do this today. Job ID: [id number]
--- NOTE | 2018-12-07 01:17 | OP ---
DATE OF PROCEDURE: 12/06/2018 PREOPERATIVE DIAGNOSIS: Symptomatic gallstones with elevated liver tests. POSTOPERATIVE DIAGNOSIS: Symptomatic gallstones with elevated liver tests plus choledocholithiasis. PROCEDURE PERFORMED: Laparoscopic cholecystectomy with intraoperative cholangiogram. ANESTHESIA: General. ESTIMATED BLOOD LOSS: Minimal. COMPLICATIONS: None. SPECIMEN: Gallbladder. FINDINGS: There was a stone in the distal common bile duct, some contrast but it is nearly obstructing. DESCRIPTION OF PROCEDURE: The patient was taken to the operating room and laid supine on the operating room table. After general anesthetic was obtained, the abdomen was prepped and draped in a sterile fashion. A curved incision was made below the umbilicus. Cautery was used to dissect down to and scored the fascia. Abdominal cavity was entered bluntly using a Odette clamp. Holding stitch of PDS was placed on each side of the fascia. Marcelo trocars were placed. High-flow pneumoperitoneum was obtained. An upper midline 5 mm port and 2 right upper quadrant 5 mm ports were placed under direct visualization. The gallbladder was retracted from the gallbladder fossa. The peritoneum was opened anteriorly and posteriorly. The critical view triangle was seen showing only the cystic duct and cystic artery branching from medial to lateral and no other branching structures. A clip was placed high on the cystic duct. A small ductotomy was made just proximal to that. A cholangiocatheter was brought in through a stab incision and placed in the cystic duct, and a cholangiogram was performed, which shows minimal contrast flow into the duodenum. There was a large distal common bile duct stone. There was good filling of the right and left hepatic duct system proximally. The cholangiocatheter was removed and the PDS Endoloop was used to ligate the cystic duct. The gallbladder was dissected out of the gallbladder fossa using cautery. The gallbladder was placed in EndoCatch bag and brought out through the [place]. All port sites were infiltrated using local anesthetic. All ports were removed under camera visualization. Pneumoperitoneum was let down. PDS was used to close the fascial defect below the umbilicus. All incisions were irrigated and closed using 4-0 Monocryl and Dermabond. The patient was sent to Recovery in stable condition. All instrument counts, needle counts, and lap counts were correct. She will need an ERCP. Job ID: [id number]
--- NOTE | 2018-12-07 02:22 | CON ---
DATE OF CONSULTATION: 12/06/2018 REASON FOR CONSULTATION: Choledocholithiasis. HISTORY OF PRESENT ILLNESS: Ms. Shelly Bradley is a 23-year-old healthy woman who is 4 months . She presented to the emergency department earlier today. She had about a week of intermittent more mild pain in the epigastrium and right upper quadrant, but this acutely worsened today and was associated with multiple episodes of emesis. Upon presentation, she was found to have mild elevation in alkaline phosphatase and an ultrasound showing a large gallstone in the gallbladder as well as gallbladder wall thickening. Common bile duct was 4 mm on that ultrasound. Dr. Mejia took her for laparoscopic cholecystectomy earlier today, this went well without complications. However, intraoperative cholangiogram demonstrated saccular appearance of the cystic duct and common bile duct and failure of contrast to drain into the bowel. Based on my review of the images, it does appear that there is a distal common bile duct filling defect, consistent with choledocholithiasis. The patient is currently recovering postoperatively. She remains a little bit drowsy, but is able to understand our conversation. I had a long discussion with the patient and her family member with the assistance of her nurse who acts as a caretaker resort for us. The patient is not currently having any nausea or significant pain. REVIEW OF SYSTEMS: Full review of systems including constitutional, head, eyes, ears, nose, throat, GI, , cardiovascular, respiratory, musculoskeletal, neurologic systems is negative except as noted in the HPI. PAST MEDICAL HISTORY: The patient is 4 months . ALLERGIES: NO KNOWN DRUG ALLERGIES. OUTPATIENT MEDICATIONS: None. FAMILY HISTORY: Noncontributory. SOCIAL HISTORY: The patient is 4 months . She has extensive family support. PHYSICAL EXAMINATION: VITAL SIGNS: Temperature 97.7, blood pressure 129/76, pulse 65, and 98% oxygen saturation on room air. GENERAL: A 23-year-old woman lying in bed, in mild discomfort, a bit drowsy, but awake, able to answer questions, in no acute distress. SKIN: No jaundice, no rashes were palpable. EYES: No scleral icterus. Extraocular movements intact. ENT: Mucous membranes moist. No oral lesions. LYMPH: No submandibular or supraclavicular lymphadenopathy. THYROID: Nontender to palpation. HEART: Regular rate and rhythm. LUNGS: Clear to auscultation bilaterally. ABDOMEN: Bowel sounds are hypoactive. Soft, nontender to palpation. EXTREMITIES: No peripheral edema. VESSELS: Radial pulses 2+ bilaterally. NEUROLOGIC: Cranial nerves 2-12 intact bilaterally. No focal deficits. LABORATORY STUDIES: WBC 8.7, hemoglobin 11.3, platelets 232, BUN 11, creatinine 0.63. Lipase only 23. test negative. Total bilirubin 0.8, alkaline phosphatase 153, AST 56, ALT 29, albumin 4.1. IMAGING STUDIES: Abdominal ultrasound and intraoperative cholangiogram from earlier today as detailed in the HPI. ASSESSMENT/PLAN: 1. Choledocholithiasis, based on positive intraoperative cholangiogram. 2. Acute cholecystitis, status post laparoscopic cholecystectomy earlier today. I discussed with the patient and family that the imaging is consistent with choledocholithiasis, and that endoscopic retrograde cholangiopancreatography is indicated for stone extraction from the bile duct. I discussed the potential benefits as well as potential risks of the procedure including post endoscopic retrograde cholangiopancreatography pancreatitis. However, she is at risk for pancreatitis, if the common bile duct stone is not removed. The patient expresses understanding and willingness to proceed. We will plan for endoscopic retrograde cholangiopancreatography tomorrow. Thank you for the consultation. Please call anytime with questions or concerns. Job ID: [id number]
[2018-12-07 04:19] LABS: #Lymphocytes 0.9 thou/uL (1.20-3.40); #Monocytes 0.2 thou/uL (0.11-0.59); #Neutrophils 3.7 thou/uL (1.40-6.50); %Basophils 0.2 % (0.0-1.0); %Eosinophils 0.1 % (0.0-10.0); %Lymphocytes 18.2 % (21.0-51.0); %Neutrophils 77.5 % (42.0-75.0); Hemoglobin 11.7 g/dL (12.0-16.0); Mean Corpuscular HGB CONC 33.3 g/dL (32.0-36.0); Mean Corpuscular Hemoglobin 27.7 pg (27.0-31.0); Mean Platelet Volume 7.3 fL (7.4-10.4); Platelet Count 265 thou/uL (130-400); Red Blood Cell (RBC) Count 4.24 mill/uL (4.20-5.40); White Blood Cell (WBC) Count 4.7 thou/uL (4.8-10.8)
[2018-12-07 04:48] LABS: ALT (SGPT) 513 U/L (8-55); AST (SGOT) 902 U/L (5-34); Alkaline Phosphatase 278 U/L (40-150); Anion Gap 13 mmol/L (10-20); BUN (Urea Nitrogen) 5 mg/dL (7.0-18.7); Bilirubin, Total 2.2 mg/dL (0.2-1.2); Calc. Creatinine Clearance 104 mL/min (70-130); Calcium 9.2 mg/dL (7.8-10.44); Carbon Dioxide 23 mmol/L (22-29); Chloride 103 mmol/L (98-107); Estimated GFR-MDRD Greater than 90; Globulin 3.3 g/dL (2.4-3.5); Glucose 148 mg/dL (70-105); Lipase 24 U/L (8-78); Potassium 4.1 mmol/L (3.5-5.1); Protein, Total 7.3 g/dL (6.0-8.3); Sodium 135 mmol/L (136-145)
[2018-12-07] MEDS: D5 1/2 NS w/20 mEq KCL 1,000 ML IV SCH (06:44)
[2018-12-07] MEDS ORDERED: Iothalamate Meglumine 60% 50 ML VIAL FS ONE (07:47)
[2018-12-07] MEDS: Famotidine/PF 20 mg/2ml Vial SLOW IVP SCH (09:15)
--- NOTE | 2018-12-07 09:17 | PDOC.GSPN ---
Surgery Progress Note: Subj - Subjective Narrative: Doing well post-procedure. Reports breast engorgement d/t not being able to breastfeed her while in the hospital. Surgery Progress Note: Obj - Vital signs Vital signs: Vital Signs - Most Recent Temp Pulse Resp BP Pulse Ox 98.5 F 67 14 92/52 L 96 12/07/18 07:42 12/07/18 07:42 12/07/18 07:42 12/07/18 07:42 12/07/18 07:42 - Physical Exam General: no distress Abdomen: soft Wound: healing well Surgery Progress Note: Results - Labs Result Diagrams: 12/07/18 04:04 12/07/18 04:04 Lab results: Laboratory Results - last 24 hr 12/07/18 12/07/18 04:04 04:04 WBC 4.7 L RBC 4.24 Hgb 11.7 L Hct 35.2 L MCV 83.0 MCH 27.7 MCHC 33.3 RDW 13.0 Plt Count 265 MPV 7.3 L Neutrophils % 77.5 H Lymphocytes % 18.2 L Monocytes % 4.0 Eosinophils % 0.1 Basophils % 0.2 Neutrophils # 3.7 Lymphocytes # 0.9 L Monocytes # 0.2 Eosinophils # 0.0 Basophils # 0.0 Sodium 135 L Potassium 4.1 Chloride 103 Carbon Dioxide 23 Anion Gap 13 BUN 5 L Creatinine 0.65 Estimated GFR (MDRD) Greater than 90 Glucose 148 H Calcium 9.2 Total Bilirubin 2.2 H AST 902 H ALT 513 H Alkaline Phosphatase 278 H Serum Total Protein 7.3 Albumin 4.0 Globulin 3.3 Albumin/Globulin Ratio 1.2 Lipase 24 Surgery Progress Note: A/P - Problem (1) Cholecystitis Current Visit: Yes Code(s): K81.9 - CHOLECYSTITIS, UNSPECIFIED Status: Acute - Plan Plan: With choledocolithiasis. Plan for ERCP today.
[2018-12-07] MEDS: Famotidine 20 MG TAB PO SCH (09:19)
[2018-12-07] MEDS ORDERED: Fentanyl 100 MCG/2 ML VIAL ONE (10:39)
[2018-12-07] MEDS ORDERED: Indomethacin 50 MG SUPP ONE (10:41)
[2018-12-07] MEDS ORDERED: Ondansetron HCl/PF 4 MG/2 ML Vial IVP PRN (11:47)
[2018-12-07] MEDS ORDERED: PACU-Morphine 4MG/ML VIAL SLOW IVP PRN (11:47)
[2018-12-07] MEDS ORDERED: Promethazine HCl 25 MG/ML VIAL SLOW IVP PRN (11:47)
[2018-12-07] MEDS ORDERED: Promethazine HCl 25 MG/ML VIAL IM PRN (11:47)
[2018-12-07] MEDS ORDERED: HYDROmorphone 2 MG/ML VIAL SLOW IVP PRN (11:47)
--- NOTE | 2018-12-07 11:50 | RAD ---
Exam: Intraoperative fluoroscopy COMPARISON: None FINDINGS: Intraoperative fluoroscopic image demonstrates retrograde opacification of the common bile duct as well as the intrahepatic biliary system. No filling defect. No dilatation. Gallbladder is absent. IMPRESSION: Intraoperative fluoroscopy as above.
[2018-12-07] MEDS ORDERED: Rocuronium Bromide 10 MG/ML (10ML VIAL) ONE (14:34)
[2018-12-07] MEDS ORDERED: Glycopyrrolate 0.2 MG/ML 5 ML SYRINGE ONE (14:34)
[2018-12-07] MEDS ORDERED: PROPOFOL 200 MG/20 ML VIAL ONE (14:34)
[2018-12-07] MEDS ORDERED: Lidocaine 1% PF 5 ML VIAL ONE (14:34)
[2018-12-07] MEDS ORDERED: Ondansetron PF 4 MG/2 ML Vial ONE (14:34)
[2018-12-07] MEDS ORDERED: Dexamethasone 20 MG/5 ML VIAL ONE (14:34)
--- NOTE | 2018-12-07 16:33 | OP ---
DATE OF PROCEDURE: 12/07/2018 JUVENILE CORRECTIONS OFFICER SURGEON: None. PROCEDURE PERFORMED: Endoscopic retrograde cholangiopancreatography with biliary sphincterotomy and stone extraction. INDICATION: Choledocholithiasis, based on positive intraoperative cholangiogram. MEDICATIONS: 1. See Anesthesia record. 2. Indomethacin 100 mg per rectum. FINDINGS: After discussion of the risks, benefits, and alternatives of the procedure, informed consent was obtained and witnessed. Pre-endoscopic cardiopulmonary examination was satisfactory. Time-out was performed before sedation was achieved. Sedation was achieved with Anesthesia assistance in the endoscopy unit. The patient was endotracheally intubated under general anesthesia and placed in a semi-prone position on the fluoroscopy table. A Pentax adult side-viewing duodenoscope was advanced beyond the mouth and esophagus, into the stomach, then beyond the pylorus and into the second portion of the duodenum. The ampulla was brought into view with the endoscope in the short position. The ampulla appeared normal. Using a triple-lumen dome-tip sphincterotome and a 0.035 guidewire, we were able to selectively cannulate the common bile duct. The guidewire was passed up into the right intrahepatic system. The biliary cholangiogram was then performed. The cholangiogram demonstrated some mild common bile duct dilation with a larger and several smaller filling defects within the distal common bile duct. The intrahepatic duct filled normally. There were cholecystectomy clips noted on the images. At this point, a generous biliary sphincterotomy was performed without difficulty or complication. The sphincterotome was then exchanged for a 9 to 12 mm extraction balloon. Multiple passes were made with the balloon fully inflated. In this fashion, we were able to extract a single large soft stone from the distal common bile duct as well as a moderate amount of associated biliary sludge. Occlusion cholangiogram was then performed, which demonstrated no persistence of any filling defects in the common bile duct. Another sweep was made of the common bile duct to sweep out excess contrast. The working apparatus was then completely withdrawn and the endoscope was withdrawn suctioning out excess air and fluid and the procedure was complete. Postprocedure fluoroscopic images demonstrated no retroperitoneal or subdiaphragmatic free air. The patient tolerated the procedure well. There were no immediate postprocedure complications. IMPRESSION: Choledocholithiasis, now status post successful biliary sphincterotomy and balloon extraction of large soft common bile duct stone and sludge. RECOMMENDATIONS: 1. Advance diet. 2. Monitor for any potential complications, such as post ERCP pancreatitis. 3. Discussed the case with Dr. Mejia. Job ID: [id number]
[2018-12-07 16:39] VITALS: BP 106/50; TEMP 98.6
== END 2018-12-07 18:45 | disposition home or self-care (01) ==
LOC: ERS 13:48 → SDC 16:14 → SURG A 19:16
PROVIDERS: ADMIT Surgery; ATTEND Surgery
PROC: 0FC98ZZ Extirpation of Matter from Common Bile Duct, Via Natural or Artificial Opening Endoscopic (ICD-10-PCS; principal; 2018-12-07)
DX: K80.64 Calculus of gallbladder and bile duct with chronic cholecystitis without obstruction (principal); K83.8 Other specified diseases of biliary tract; Z79.1 Long term (current) use of non-steroidal anti-inflammatories (NSAID); Z79.899 Other long term (current) drug therapy
CPT/HCPCS: 36415; 47532; 74330; 76705; 80053; 81003; 81015; 83690; 84703; 85025; 87086; 88304; 96361; 96365; 96366; 96374; 96375; 96376; G0378; J1100; J1200; J1885; J2001; J2270; J2405; J2543; J2704; J3010; Q9961; S0028

== ENCOUNTER 2019-12-05 01:52 | Inpatient (IN) | payer OTHER, SELFPAY ==
[2019-12-05 02:40] VITALS: BMI 24.4
[2019-12-05 03:17] LABS: Amnisure Test RUPTURE DETECTED (No Rupture)
[2019-12-05 03:18] LABS: Amnisure Internal Control QC ACCEPTABLE (ACCEPTABLE)
[2019-12-05] MEDS ORDERED: NS / Oxytocin 40 units/1000ml 1,000 ML IV PRN (04:44)
[2019-12-05] MEDS ORDERED: Carboprost 250 MCG/ML AMP IM PRN (04:44)
[2019-12-05] MEDS ORDERED: Promethazine HCl 25 MG/ML VIAL IM PRN ×2 (04:44→10:42)
[2019-12-05] MEDS ORDERED: hydrALAZINE 20 MG/ML VIAL SLOW IVP PRN ×2 (04:44→16:47)
[2019-12-05] MEDS ORDERED: Misoprostol 200 MCG TAB PR PRN (04:44)
[2019-12-05] MEDS ORDERED: Lidocaine 1% (PF) 30 ML VIAL SC PRN (04:44)
[2019-12-05] MEDS ORDERED: Methylergonovine 0.2 MG/ML VIAL IM PRN (04:44)
[2019-12-05] MEDS ORDERED: Ibuprofen 800 MG TAB PO PRN (04:44)
[2019-12-05] MEDS ORDERED: Butorphanol Tartrate 1 MG/ML VIAL SLOW IVP PRN (04:44)
[2019-12-05] MEDS ORDERED: Ondansetron PF 4 MG/2 ML Vial IVP PRN ×2 (04:44→10:42)
--- NOTE | 2019-12-05 04:48 | PDOC.FPROB ---
FMR OB H&P: HPI - History of Present Illness Chief Complaint: SROM @ 2300 on 12/03 Indentification: 24 y/o @ 39.2 wks gestation History of Present Illness: 24 y/o @ 39.2 wks gestation dated by LMP presents to L&D after her "water broke," at 2300 on 12/03. Pt denies vaginal bleeding, or vaginal d/c. states she has felt decreased movements since SROM, feeling fetus move about once an hour. Feeling ctx's Q15 minutes. 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 States she feels safe at home. - Family History Family History: pt reports no known family medical hx. FMR OB H&P: Medications - Current Home Medications: Medication Instructions Recorded Confirmed Type Iron Fum,Ps Cmp/Vit C/Niacin 1 cap PO DAILY 12/05/19 12/05/19 History [Integra] Allergies/Adverse Reactions: Allergies Allergy/AdvReac Type Severity Reaction Status Date / Time No Known Allergies Allergy Verified 08/05/18 23:20 FMR OB H&P: ROS - Review of Systems General: denies: fever/chills Eyes: denies: vision changes, scotomas ENT: denies: nasal congestion, sore throat Cardiovascular: denies: chest pain, palpitation, edema Respiratory: denies: cough, congestion, shortness of breath Gastrointestinal: denies: abdominal pain, nausea, diarrhea Genitourinary (Female): reports: contractions, vaginal pressure. denies: dysuria, hematuria, vaginal discharge Musculoskeletal: denies: pain, tenderness Neurologic: denies: numbness, seizures, weakness Integumentary: denies: itching, rash Breast: denies: lumps Hematologic/Lymphatic: denies: prolonged or excessive bleeding FMR OB H&P: Vital Signs - Maternal Vital signs: Vital Signs - First Documented Temp Pulse Resp BP 98.5 F 59 L 16 97/58 L 12/05/19 02:34 12/05/19 02:34 12/05/19 02:34 12/05/19 02:34 - Heart Tones Baseline: 140 Variability: moderate Acceleration: present Deceleration: absent Category: category 1 [place] contractions every: Q5min FMR OB H&P: Physical Exam - Physical Exam General: NAD, awake, alert and oriented HEENT: normocephalic and atraumatic, PERRLA, EOMI, MMM, grossly normal vision, grossly normal hearing Neck: supple, FROM, trachea midline, no LAD, no JVD Chest: non-tender to palpation, no lesions Breast: symmetric Heart: RRR, normal S1/S2, no murmurs/rubs/gallops, pulses present, no edema General: CTAB, no respiratory distress, good air movement, no rales/rhonchi, no wheezing, no retractions Abdomen: soft, gravid, non-tender, bowel sound present, no hernias Musculoskeletal: normal gait and station, pulses present, FROM in all four extremities, no misalignment/asymmetry, no atrophy Neurological: cranial nerves II through XII intact, sensation to pain,touch and proprioception grossly normal, strength +5, no clonus, no tremor, no focal deficit Skin: no rash, good tugor, capillary refill <2 seconds, no jaundice Lymphatic: no unusual bruising or bleeding, no purpura Psychiatric: intact recent and remote memory - Pelvic Exam Vulva: normal hair distribution, appropriate brent stage SVE: /-3 @ 02:30 Membranes: ruptured. SROM @ 2300 on 12/03 Presentation: Cephalic palpated by Wai FMR OB H&P: Results - Labs Lab results: Laboratory Results - last 24 hr 12/05/19 02:50 Amnio Swab Test RUPTURE DETECTED H FMR OB H&P: A/P - Problem List (1) Decreased movement Current Visit: Yes Status: Acute Code(s): O36.8190 - DECREASED MOVEMENTS, UNSP TRIMESTER, UNSP (2) SROM (spontaneous rupture of membranes) Current Visit: Yes Status: Acute Code(s): GJM9495 - (3) Current Visit: No Status: Acute Discussion: Date/Time: 12/05/19 0448 24 y/o @ 39.2 wks dated by LMP, presents to L&D after SROM @ 2300 on 12/03. Admit for labor. 1. Term @ 39.2 wks - SVE @ 02:50: 4/50/-3 - FHT's with baseline 140 with accels present and moderate variability. Cat 1 strip Q5min ctx. - Q4H SVE - Pt desires epidural for pain control - GBS negative, nursing staff called [facility] labs - request records from clinic. - positive RPR with non-reactive tppa 2. SROM - occurred at home on 12/04 @ 2300 - amnisure + 3. Decreased movements - Non-stress test ordered - tracing reassuring. with baseline 140 with accels present. Cat 1 strip with Q5min ctx. This H&P was discussed with Dr. Ochoa who agree with the above documentation and plan.
[2019-12-05 05:34] LABS: Mean Corpuscular HGB CONC 33.2 g/dL (32.0-36.0); Mean Corpuscular Hemoglobin 29.9 pg (27.0-31.0); Mean Platelet Volume 8.5 fL (7.4-10.4); Platelet Count 201 thou/uL (130-400); RBC Distribution Width 13.4 % (11.5-14.5); Red Blood Cell (RBC) Count 4.03 mill/uL (4.20-5.40); White Blood Cell (WBC) Count 7.7 thou/uL (4.8-10.8)
[2019-12-05 06:14] LABS: Syphilis Antibody Nonreactive (Nonreactive); Syphilis Antibody Index 0.04 S/CO (<1.00 Non-Reactive)
[2019-12-05 06:15] LABS: HBSAg Index 0.12 S/CO (0-0.99); HIV (1/2) Antibody/Antigen Non-Reactive (NonReactive); HIV 1/2 INDEX 0.05 S/CO (<1.00); Hep B Surf Ag Non-Reactive S/CO (NonReactive)
--- NOTE | 2019-12-05 07:20 | PDOC.LDPN ---
Labor & Delivery Progress Note - Subjective Subjective: comfortable - Objective Vital signs reviewed and normal: yes General: NAD Uterine fundus: non tender Dilation: 4 Effacement: 75% Station: -3 FHT: category 1, variability present Plan: continue plan of care -: Term @ 39.2 wks - SVE @ 02:50: 4/50/-3 - SVE @ 07:10: 4/80/-3 - FHT's with baseline 130 with moderate variability. Cat 1 strip Q5min ctx. - Q4H SVE - Pt desires epidural for pain control, currently controlled without - request records from clinic. - positive RPR with non-reactive tppa Plan: Will initiate augmentation with pitocin per protocol. This H&P was discussed with Dr. Ochoa who agree with the above documentation and plan.
[2019-12-05] MEDS ORDERED: Fentanyl 4 mcg/Bup 0.1% Cadd 100 ML ONE (09:15)
[2019-12-05] MEDS: Lactated Ringer's 1,000 ML IV SCH ×3 (10:08→22:04)
[2019-12-05] MEDS: NS w/ Oxytocin 10 units 500 ML IV SCH (10:09)
[2019-12-05] MEDS ORDERED: Acetaminophen 325 MG TAB PO PRN (10:42)
[2019-12-05] MEDS ORDERED: diphenhydrAMINE 50 MG/ML VIAL IVP PRN (10:42)
[2019-12-05] MEDS ORDERED: Naloxone HCl 0.4 mg/ml Vial IVP PRN ×2 (10:42)
[2019-12-05] MEDS ORDERED: Lactated Ringer's 500 ML IV PRN (10:42)
[2019-12-05] MEDS ORDERED: EPHEDRINE 25 MG/5 ML SYRINGE SLOW IVP PRN (10:42)
[2019-12-05] MEDS ORDERED: Fentanyl 4 mcg/Bupivacaine 0.1% Cassette 100 ML EPIDURAL SCH (10:45)
[2019-12-05] MEDS ORDERED: Communication Order-Pharmacy FS SCH (10:45)
[2019-12-05] MEDS ORDERED: Lidocaine 1% (PF) 30 ML VIAL ONE (10:59)
[2019-12-05] MEDS ORDERED: NS / Oxytocin 40 units/1000ml 1,000 ML ONE (10:59)
--- NOTE | 2019-12-05 13:06 | PDOC.LDPN ---
Labor & Delivery Progress Note - Subjective Subjective: vaginal pressure - Objective Vital signs reviewed and normal: yes General: NAD Uterine fundus: non tender SVE: 1:00 Dilation: Ant lip/100/1 Effacement: 100% Station: 1+ FHT: category 1, early decelerations [place] contractions every: 2-3 minutes Plan: continue plan of care, pitocin for augmentation -: Term @ 39.2 wks - SVE @ 02:50: 4/50/-3 - SVE @ 07:10: 4/80/-3 -SVE @ 12:00 9/100/0, having early decels with some variables. Overall reactive strip -SVE @ 13:00 Ant lip/100/+1 - Most recent FHT's with baseline 130 with moderate variability, early decels noted. Cat 1 strip Q5min ctx. - Epidural in place - positive RPR with non-reactive tppa
[2019-12-05] MEDS ORDERED: Bisacodyl 10 MG SUPP PR PRN (16:47)
[2019-12-05] MEDS ORDERED: NS / Oxytocin 40 units/1000ml 1,000 ML IV SCH (16:47)
[2019-12-05] MEDS ORDERED: Lanolin Ointment 7 GM TUBE TOP PRN (16:47)
[2019-12-05] MEDS ORDERED: Milk Of Magnesia 30 ML UDCUP PO PRN (16:47)
[2019-12-05] MEDS: Ferrous Sulfate 325 MG TAB PO SCH (17:33)
[2019-12-05] MEDS: Docusate Calcium (SURFAK) 240 MG CAP PO SCH (22:31)
[2019-12-06] MEDS: Lactated Ringer's 1,000 ML IV SCH ×2 (04:44→13:43)
[2019-12-06] MEDS: NS w/ Oxytocin 10 units 500 ML IV SCH (04:45)
[2019-12-06] MEDS: Ibuprofen 800 MG TAB PO SCH ×2 (06:11→13:43)
[2019-12-06 06:41] LABS: Mean Corpuscular HGB CONC 34.1 g/dL (32.0-36.0); Mean Corpuscular Hemoglobin 30.8 pg (27.0-31.0); Mean Corpuscular Volume 90.3 fL (78.0-98.0); Mean Platelet Volume 8.5 fL (7.4-10.4); Platelet Count 177 thou/uL (130-400); RBC Distribution Width 13.3 % (11.5-14.5); Red Blood Cell (RBC) Count 3.58 mill/uL (4.20-5.40); White Blood Cell (WBC) Count 8.3 thou/uL (4.8-10.8)
--- NOTE | 2019-12-06 08:34 | PDOC.OPDEL ---
OB Operative/Delivery Note Delivery Dr/Surgeon: Bruno Sears Hodnett Pre-Delivery Diagnosis: active labor Procedure/Post Delivery Dx: spontaneous vaginal delivery Weeks gestation: 39 (39.2) Anesthesia: epidural - Findings A Sex: male Weight: 2981 kg - 1 min: 8 - 5 min: 9 - Additional Findings/Plan Placenta delivered: spontaneous Repaired Obstetrical Laceration: 1st degree Estimated blood loss: QBL 110 ml Compilations/Other Findings: Vaginal Delivery Delivering Physician: Bruno Sears Attending : Ellen Procedure: Spontaneous Vaginal Delivery Anesthesia: epidural QBL: _110__ ml Pre-op Diagnosis: 1. Term intrauterine in labor Post-op Diagnosis: 1. Term intrauterine , delivered Indications: A 24 y/o female G2 P 1001 presents in active labor Delivery Note: This is 24 y/o female G2 P 1001 @ 39.2 wks who delivered a viable M at 13:43 on 12/05/2019. Following an uneventful antepartum course , a vigorous M was delivered over an intact perineum in the L occipitoanterior position. Anterior Shoulder and then remainder of the body delivered. Nuchal cordx 1. The head was held down and mouth and nares were bulb suctioned. Cord clamped after delayed cord clamping, cut, and cord blood collected. Placenta delivered intact in the [place] presentation with a 3 vessel cord noted. Fundal massage was performed and the fundus was firm. The cervix and vagina were inspected. 1st degree/ skin Laceration noted and repaired with 2-0 vicryl in the usual fashion with good approximation and hemostasis. went to nursery in good condition for routine care. Apgars were 8_/_9_ at 1 & 5 minutes, respectively. Patient tolerated delivery well and went to after routine recovery/care. Post delivery plan: routine recovery
--- NOTE | 2019-12-06 08:40 | PDOC.OBAPN ---
FMR OB AP PN: Sub - Interval History Hospital Day: 2 Chief Complaint: Vaginal swelling Indentification: 24 yo G2 now P2002 delivered M fetus via @ 39.2 wk on Interval History: Patient is eating, drinking, voiding, passing flatus. Normal lochia. FMR OB AP PN: Obj - Maternal Vital signs: BP: [] HR: [] RR: [] Tmax: [] Pox: []% on [] Wt: [] FMR OB AP PN: Data - Labs Lab results: Laboratory Results - last 24 hr 12/06/19 06:27 WBC 8.3 RBC 3.58 L Hgb 11.0 L Hct 32.4 L MCV 90.3 MCH 30.8 MCHC 34.1 RDW 13.3 Plt Count 177 MPV 8.5 R OB AP PN: A/P Discussion: Date/Time: 12/06/19 0838 This H&P was discussed with [] and [] who agree with the above documentation and plan.
--- NOTE | 2019-12-06 08:43 | PDOC.FM ---
- Subjective Subjective: 24 yo G2 now P2002 delivered a Wilia M @ 39.2 WGA on 12/05/2019 @ 13:43 via . Eating, drinking, voiding, passing flatus. Pain is well controlled. Reports vulvar edema. Minimal lochia. Patient prefers to go home later today if she may. - Objective Vital Signs & Weight: Vital Signs (12 hours) Temp Pulse Resp BP Pulse Ox 12/06/19 06:00 98.0 F 65 16 101/54 L 95 12/06/19 01:24 98.0 F 72 16 100/57 L 97 Weight Weight 53.07 kg Result Diagrams: 12/06/19 06:27 Phys Exam - Physical Examination Constitutional: NAD HEENT: PERRLA, moist MMs Gastrointestinal: soft, non-tender, no distention, positive bowel sounds Fundus firm and below umbilicus Musculoskeletal: no edema, pulses present Neurological: non-focal, moves all 4 limbs Psychiatric: normal affect, A&O x 3 Skin: no rash, cap refill <2 seconds Deviation from normal: Vulvar edema noted of L labia majora; soft, TTP Dx/Plan (1) Term Code(s): Z34.80 - ENCOUNTER FOR SUPRVSN OF NORMAL , UNSP TRIMESTER Status: Acute - Plan Plan: 24 yo G2 now P2002 delivered a Wilia M infant @ 39.2 WGA on 12/05/2019 @ 13:43 via . PP Day #1 -Eating, drinking, voiding, ambulating, passing flatus. -Minimal lochia. Fundus firm below umbilicus -Plans to bottle feed infant -vulvar edema noted, pain well controlled -Vital signs stable -Stable for discharge this afternoon after baby's bilirubin results wnl -Plan to follow up at [facility] in 2 weeks Vulvar edema -Continue sitz baths, ice packs -PRN tylenol/ibuprofen Meron Al MD PGY2
[2019-12-06] MEDS: Ferrous Sulfate 325 MG TAB PO SCH (08:54)
[2019-12-06] MEDS: Docusate Calcium (SURFAK) 240 MG CAP PO SCH (08:54)
[2019-12-06 12:35] VITALS: BP 100/62; TEMP 98.4
[2019-12-06] MEDS ORDERED: Adacel (T-DAP) 0.5 ML SYRINGE IM ONE (16:47)
== END 2019-12-06 17:40 | disposition home or self-care (01) | DRG 807 ==
LOC: L&D/OP 01:52 → L&D 04:44 → 3SW 17:09
PROVIDERS: ADMIT Obstetrics & Gynecology; ATTEND Obstetrics & Gynecology
PROC: 10E0XZZ Delivery of Products of Conception, External Approach (ICD-10-PCS; principal; 2019-12-05)
PROC: 3E0P7VZ Introduction of Hormone into Female Reproductive, Via Natural or Artificial Opening (ICD-10-PCS; 2019-12-05)
PROC: 3E033VJ Introduction of Other Hormone into Peripheral Vein, Percutaneous Approach (ICD-10-PCS; 2019-12-05)
PROC: 0HQ9XZZ Repair Perineum Skin, External Approach (ICD-10-PCS; 2019-12-05)
DX: O36.8130 Decreased fetal movements, third trimester, not applicable or unspecified (principal); Z37.0 Single live birth; O76 Abnormality in fetal heart rate and rhythm complicating labor and delivery; O71.82 Other specified trauma to perineum and vulva; O70.0 First degree perineal laceration during delivery; Z3A.39 39 weeks gestation of pregnancy
CPT/HCPCS: 36415; 51702; 84112; 85027; 86780; 86850; 86900; 86901; 87340; 87389; 99285; J2001; J2590